=== PATIENT | female | born 1995 | race Caucasian/White ===

== ENCOUNTER 2018-07-14 18:21 | Emergency (ER) | payer SELFPAY ==
--- NOTE | 2018-07-14 20:16 | UC ---
Complaint Female HPI - HPI Summary HPI Summary: 22-year-old female presents with onset of right lower quadrant pain approximately 11:00 this morning. Describes pain as constant and sharp that waxes and wanes with intensity. States pain has been increasingly worsened throughout the day. Associated with some mild nausea. Denies fever, chills, chest pain, shortness of breath, vomiting, diarrhea, dysuria, frequency, urgency , hematuria, vaginal discharge, or abnormal bleeding. Last menstrual period was 2 weeks ago. - History Of Current Complaint Chief Complaint: UCGI Stated Complaint: ABDOMINAL PAIN Time Seen by Provider: 07/14/18 20:04 Hx Obtained From: Patient Hx Last Menstrual Period: 06/21/18 Pain Intensity: 7 - Allergies/Home Medications Allergies/Adverse Reactions: Allergies Allergy/AdvReac Type Severity Reaction Status Date / Time sulfamethoxazole Allergy See Comment Verified 07/14/18 18:48 [From Bactrim] trimethoprim [From Bactrim] Allergy See Comment Verified 07/14/18 18:48 Home Medications: Home Medications clonazePAM TAB(*) [Klonopin TAB(*)] 0.5 mg PO Q6H PRN 07/14/18 [History Confirmed 07/14/18] PMH/Surg Hx/FS Hx/Imm Hx Cardiovascular History: Hypertension Neurological History: Seizures Other History Of: Negative For: HIV, Hepatitis B, Hepatitis C, Anticoagulant Therapy - Surgical History Surgical History: None - Family History Known Family History: Positive: Non-Contributory - Social History Occupation: Unemployed Lives: With Family Alcohol Use: None Substance Use Type: None Smoking Status (MU): Never Smoked Tobacco Review of Systems All Other Systems Reviewed And Are Negative: Yes Constitutional: Negative: Fever, Chills Respiratory: Negative: Shortness Of Breath, Cough Cardiovascular: Negative: Palpitations, Chest Pain Gastrointestinal: Positive: Abdominal Pain, Nausea. Negative: Vomiting, Diarrhea Genitourinary: Negative: Dysuria, Hematuria, Frequency, Urgency, Vaginal/Penile Discharge, Abnormal Bleeding Musculoskeletal: Positive: Negative Neurological: Positive: Negative Is Patient Immunocompromised?: No Physical Exam - Summary Physical Exam Summary: GENERAL APPEARANCE: Obese, alert and cooperative young adult female who appears to be uncomfortable holding her right lower abdomen. CARDIAC: Normal S1 and S2. No S3, S4 or murmurs. Rhythm is regular. There is no peripheral edema, cyanosis or pallor. Extremities are warm and well perfused. Capillary refill is less than 2 seconds. LUNGS: Clear to auscultation and percussion without rales, rhonchi, wheezing or diminished breath sounds. ABDOMEN: Soft, nondistended. Tenderness to RLQ with rebound tenderness. No masses or hepatosplenomegally noted but difficult to assess due to body habitus. Positive bowel sounds. MUSKULOSKELETAL: ROM intact to all extremities. No joint erythema or tenderness. Normal muscular development. Normal gait. SKIN: Skin normal color, texture and turgor with no lesions or eruptions. Triage Information Reviewed: Yes Vital Signs: Initial Vital Signs Temp 98.5 F 07/14/18 18:41 Pulse 87 07/14/18 18:41 Resp 20 07/14/18 18:41 BP 158/107 07/14/18 18:41 Pulse Ox 100 07/14/18 18:41 Vital Signs Reviewed: Yes Complaint Female Dx - Course Course Of Treatment: 22-year-old female presents with onset of right lower quadrant pain approximately 11:00 this morning. Describes pain as constant and sharp that waxes and wanes with intensity. States pain has been increasingly worsened throughout the day. Associated with some mild nausea. Denies fever, chills, chest pain, shortness of breath, vomiting, diarrhea, dysuria, frequency , urgency, hematuria, vaginal discharge, or abnormal bleeding. Last menstrual period was 2 weeks ago. Afebrile. She is hypertensive however her vitals are within normal parameters. Exam revealed an obese young adult female who appeared to be uncomfortable holding her right lower quadrant. Bowel sounds are present. Abdomen is soft and nondistended. She was exquisitely tender to the right lower quadrant with some rebound tenderness. Remainder of exam was unremarkable. Due to the significant right lower quadrant recommending that the patient be evaluated in the emergency room. She is agreeable to this and selecting to transport via private vehicle with her father driving her. - Differential Dx/Diagnosis Differential Diagnosis/HQI/PQRI: Appendicitis, Ectopic, Ovarian Cyst, Renal Colic, Urinary Tract Infection Provider Diagnosis: Acute abdominal pain Discharge - Sign-Out/Discharge Documenting (check all that apply): Patient Departure All imaging exams completed and their final reports reviewed: No Studies - Discharge Plan Condition: Stable Disposition: HOME-RECOMMEND TO ED Patient Education Materials: Abdominal Pain (ED) Referrals: Osvaldo Sheffield MD [Primary Care Provider] - Additional Instructions: With your right lower quadrant pain I cannot rule out the possibility of appendicitis. I am recommending that you go to the emergency room for further evaluation. Go directly to the emergency room for the clinic. Do not eat or drink anything until you have been evaluated. - Billing Disposition and Condition Condition: STABLE Disposition: Home-Recommend to ED
[2018-07-14 20:26] VITALS: BP 163/115
== END 2018-07-14 20:26 | disposition home health service (06) ==
LOC: UCEAST 18:21
DX: R10.31 Right lower quadrant pain (principal); I10 Essential (primary) hypertension; Z88.2 Allergy status to sulfonamides
CPT/HCPCS: 81003; 84702; 87086; 99212; G0463

== ENCOUNTER 2018-07-14 20:39 | Emergency (ER) | payer SELFPAY ==
[2018-07-14] MEDS ORDERED: Morphine VIAL* 10 MG/ML 1 ML VIAL IV ONE (22:12)
[2018-07-14] MEDS ORDERED: NS 0.9% 1000 ML* 1,000 ML IV ONE (22:12)
[2018-07-14] MEDS ORDERED: Ondansetron INJ* 2 MG/ML VIAL IV ONE (22:12)
[2018-07-14 22:18] LABS: Hematocrit 39 % (35-47); Hemoglobin 12.4 g/dl (12.0-16.0); Mean Corpuscular HGB Conc 32 g/dl (31-36); Mean Corpuscular Hemoglobin 24 pg (27-31); Mean Corpuscular Volume 74 fL (80-97); Mean Platelet Volume 7.7 fL (7.4-10.4); Platelet Count 343 10^3/ul (150-450); Red Blood Count 5.21 10^6/ul (4.00-5.40); Red Cell Distribution Width 15 % (10.5-15); White Blood Count 12.4 10^3/ul (3.5-10.8)
[2018-07-14] MEDS ORDERED: Morphine VIAL* 4 MG/ML VIAL (1 ml vial) ONE (22:21)
[2018-07-14 22:31] LABS: ALT 12 U/L (7-52); AST 11 U/L (13-39); Albumin 4.2 g/dL (3.2-5.2); Albumin/Globulin Ratio 1.1 (1-3); Alkaline Phosphatase 115 U/L (34-104); Anion Gap 6 mmol/L (2-11); BUN/Creatinine Ratio 15.6 (8-20); Blood Urea Nitrogen 10 mg/dL (6-24); CO2 Carbon Dioxide 29 mmol/L (22-32); Calcium 9.7 mg/dL (8.6-10.3); Chloride 105 mmol/L (101-111); EGFR Non-African American 118.3 (>60); Globulin 3.7 g/dL (2-4); Glucose 117 mg/dL (70-100); Potassium 4.2 mmol/L (3.5-5.0); Sodium 140 mmol/L (135-145); Total Protein 7.9 g/dL (6.4-8.9)
[2018-07-14] MEDS ORDERED: Iohexol 300* (CONTRAST) 10 ML SDV IV ONE (22:35)
[2018-07-14 22:38] LABS: HCG Pregnancy < 0.60 mIU/mL
[2018-07-14 22:56] LABS: Microcytosis 1+
[2018-07-14 22:57] LABS: ABS Basophils 0.1 10^3/ul (0-0.2); ABS Eosinophils 0.1 10^3/ul (0-0.6); ABS Lymphocytes 2.7 10^3/ul (1.0-4.8); ABS Neutrophils 8.4 10^3/ul (1.5-7.7); ABS Nucleated RBC 0 10^3/ul; Eosinophil % 1.1 %; Lymphocyte % 21.5 %; Nucleated Red Blood Cells % 0.1
[2018-07-14 23:57] LABS: Urine Appearance Cloudy; Urine Bacteria Absent (Absent); Urine Bilirubin Negative (Negative); Urine Blood Negative (Negative); Urine Color Yellow; Urine Glucose Negative (Negative); Urine Ketones Negative (Negative); Urine Nitrite Negative (Negative); Urine Protein Negative (Negative); Urine Red Blood Cell Trace(0-2/hpf) (Absent); Urine Specific Gravity 1.046 (1.010-1.030); Urine Urobilinogen Negative (Negative); Urine White Blood Cell Trace(0-5/hpf) (Absent)
[2018-07-15] MEDS ORDERED: Morphine VIAL* 10 MG/ML 1 ML VIAL IV ONE ×3 (01:07→01:11)
[2018-07-15] MEDS ORDERED: Morphine VIAL* 4 MG/ML VIAL (1 ml vial) ONE (01:56)
--- NOTE | 2018-07-15 03:12 | ED ---
Abdominal Pain/Female - HPI Summary HPI Summary: Patient complains of sudden onset right lower quadrant pain starting this morning. Pain is stabbing, constant, progressive, worse with movement. Patient states eating and drinking normally, denies fever, cough, sore throat, CP, SOB, N/V/D, change in urine, vaginal symptoms. Medical history is epilepsy , HTN, anxiety. Abdominal surgical history is none. Ibuprofen 400 mg taken at 5:30 PM. - History of Current Complaint Chief Complaint: EDAbdPain Stated Complaint: ABD PAIN Time Seen by Provider: 07/14/18 22:07 Hx Obtained From: Patient Hx Last Menstrual Period: 06/21/18 Onset/Duration: Sudden Onset Timing: Constant Severity Initially: Moderate Severity Currently: Severe Pain Intensity: 8 Pain Scale Used: 0-10 Numeric Location: Discrete At: RLQ Radiates: No Character: Sharp Aggravating Factor(s): Movement Alleviating Factor(s): Nothing Allergies/Adverse Reactions: Allergies Allergy/AdvReac Type Severity Reaction Status Date / Time sulfamethoxazole Allergy See Comment Verified 07/14/18 20:44 [From Bactrim] trimethoprim [From Bactrim] Allergy See Comment Verified 07/14/18 20:44 PMH/Surg Hx/FS Hx/Imm Hx Endocrine/Hematology History: Denies: Hx Anticoagulant Therapy, Hx Diabetes, Hx Thyroid Disease Cardiovascular History: Reports: Hx Hypertension Denies: Hx Congestive Heart Failure, Hx Deep Vein Thrombosis, Hx Myocardial Infarction, Hx Pacemaker/ICD Respiratory History: Denies: Hx Asthma, Hx Chronic Obstructive Pulmonary Disease (COPD), Hx Lung Cancer, Hx Pneumonia, Hx Pulmonary Embolism GI History: Denies: Hx Gall Bladder Disease, Hx Gastrointestinal Bleed, Hx Ulcer, Hx Urosepsis History: Denies: Hx Dialysis, Hx Kidney Stones, Hx Renal Disease Sensory History: Denies: Hx Eye Prosthesis Neurological History: Reports: Hx Seizures Denies: Hx Dementia, Hx Migraine, Hx Transient Ischemic Attacks (TIA) Psychiatric History: Denies: Hx Anxiety, Hx Depression, Hx Schizophrenia, Hx Bipolar Disorder Infectious Disease History: No Infectious Disease History: Denies: Traveled Outside the [place] in Last 30 Days - Family History Known Family History: Positive: None, Non-Contributory - Social History Alcohol Use: None Substance Use Type: Reports: None Smoking Status (MU): Never Smoked Tobacco Review of Systems Constitutional: Negative Eyes: Negative ENT: Negative Cardiovascular: Negative Respiratory: Negative Positive: Abdominal Pain Genitourinary: Negative Musculoskeletal: Negative Skin: Negative Neurological: Negative Psychological: Normal All Other Systems Reviewed And Are Negative: Yes Physical Exam - Summary Physical Exam Summary: Extreme tenderness right lower quadrant, moderate pain in right upper quadrant. Abdominal exam otherwise unremarkable. Triage Information Reviewed: Yes Vital Signs On Initial Exam: Initial Vitals Temp Pulse Resp BP Pulse Ox 98.6 F 91 18 153/84 100 07/14/18 20:42 07/14/18 20:42 07/14/18 20:42 07/14/18 20:42 07/14/18 20:42 Vital Signs Reviewed: Yes Appearance: Positive: Well-Appearing Skin: Positive: Warm Head/Face: Positive: Normal Head/Face Inspection Eyes: Positive: Normal Neck: Positive: Supple Respiratory/Lung Sounds: Positive: Clear to Auscultation Cardiovascular: Positive: Normal Abdomen Description: Positive: Other: Musculoskeletal: Positive: Normal Neurological: Positive: Normal Psychiatric: Positive: Normal AVPU Assessment: Alert - [place] Coma Scale Best Eye Response: 4 - Spontaneous Best Motor Response: 6 - Obeys Commands Best Verbal Response: 5 - Oriented Coma Scale Total: 15 Diagnostics - Vital Signs Vital Signs Temp Pulse Resp BP Pulse Ox 07/15/18 01:57 16 07/14/18 23:42 126/75 07/14/18 23:11 85 141/82 100 07/14/18 23:00 89 100 07/14/18 22:41 92 127/87 100 07/14/18 22:35 16 07/14/18 22:09 91 100 07/14/18 20:42 98.6 F 91 18 153/84 100 - Laboratory Lab Results: Lab Results 07/14/18 07/14/18 07/14/18 Range/Units 22:03 22:03 23:47 WBC 12.4 H (3.5-10.8) 10^3/ul RBC 5.21 (4.00-5.40) 10^6/ul Hgb 12.4 (12.0-16.0) g/dl Hct 39 (35-47) % MCV 74 L (80-97) fL MCH 24 L (27-31) pg MCHC 32 (31-36) g/dl RDW 15 (10.5-15) % Plt Count 343 (150-450) 10^3/ul MPV 7.7 (7.4-10.4) fL Neut % (Auto) 68.1 % Lymph % (Auto) 21.5 % [place] % (Auto) 8.4 % Eos % (Auto) 1.1 % Baso % (Auto) 0.9 % Absolute Neuts (auto) 8.4 H (1.5-7.7) 10^3/ul Absolute Lymphs (auto) 2.7 (1.0-4.8) 10^3/ul Absolute Monos (auto) 1.0 H (0-0.8) 10^3/ul Absolute Eos (auto) 0.1 (0-0.6) 10^3/ul Absolute Basos (auto) 0.1 (0-0.2) 10^3/ul Absolute Nucleated RBC 0 10^3/ul Nucleated RBC % 0.1 Microcytosis 1+ Sodium 140 (135-145) mmol/L Potassium 4.2 (3.5-5.0) mmol/L Chloride 105 (101-111) mmol/L Carbon Dioxide 29 (22-32) mmol/L Anion Gap 6 (2-11) mmol/L BUN 10 (6-24) mg/dL Creatinine 0.64 (0.51-0.95) mg/dL Est GFR ( Amer) 143.1 (>60) Est GFR (Non-Af Amer) 118.3 (>60) BUN/Creatinine Ratio 15.6 (8-20) Glucose 117 H (70-100) mg/dL Calcium 9.7 (8.6-10.3) mg/dL Total Bilirubin 0.20 (0.2-1.0) mg/dL AST 11 L (13-39) U/L ALT 12 (7-52) U/L Alkaline Phosphatase 115 H (34-104) U/L Total Protein 7.9 (6.4-8.9) g/dL Albumin 4.2 (3.2-5.2) g/dL Globulin 3.7 (2-4) g/dL Albumin/Globulin Ratio 1.1 (1-3) Lipase 16 (11.0-82.0) U/L Beta HCG, Quant < 0.60 mIU/mL Urine Color Yellow Urine Appearance Cloudy Urine pH 6.0 (5-9) Ur Specific [place] 1.046 H (1.010-1.030) Urine Protein Negative (Negative) Urine Ketones Negative (Negative) Urine Blood Negative (Negative) Urine Nitrate Negative (Negative) Urine Bilirubin Negative (Negative) Urine Urobilinogen Negative (Negative) Ur Leukocyte Esterase 1+ A (Negative) Urine WBC (Auto) Trace(0-5/hpf) (Absent) Urine RBC (Auto) Trace(0-2/hpf) (Absent) Ur Squamous Epith Cells Present A (Absent) Urine Bacteria Absent (Absent) Urine Glucose Negative (Negative) Result Diagrams: 07/14/18 22:03 07/14/18 22:03 Lab Statement: Any lab studies that have been ordered have been reviewed, and results considered in the medical decision making process. Abdominal Pain Fem Course/Dx - Course Course Of Treatment: Patient complains of sudden onset right lower quadrant pain starting this morning. Pain is stabbing, constant, progressive, worse with movement. Patient states eating and drinking normally, denies fever, cough , sore throat, CP, SOB, N/V/D, change in urine, vaginal symptoms. Medical history is epilepsy, HTN, anxiety. Abdominal surgical history is none. Ibuprofen 400 mg taken at 5:30 PM. Physical exam:Extreme tenderness right lower quadrant, moderate pain in right upper quadrant. Abdominal exam otherwise unremarkable. Vital Signs within normal limits. WBC 12.4. Labs otherwise unremarkable. Ultrasound gallbladder negative. CT abdomen and pelvis negative. Transvaginal ultrasound negative. Advised patient follow up with [facility]. - Diagnoses Provider Diagnoses: Abdominal pain Discharge - Sign-Out/Discharge Documenting (check all that apply): Patient Departure - Discharge Plan Condition: Stable Disposition: HOME Patient Education Materials: Acute Abdominal Pain (ED) Forms: *Work Release Referrals: Osvaldo Sheffield MD [Primary Care Provider] - Gemini Gabriel MD [Medical Doctor] - Additional Instructions: Take ibuprofen 600 mg every 6 hours for abdominal pain. Do not take for more than 5 days. Follow up with [facility] Dr Gabriel for further evaluation. Return to the ED for any new or worsening symptoms. - Billing Disposition and Condition Condition: STABLE Disposition: Home
[2018-07-15] MEDS ORDERED: Ibuprofen TAB* 600 MG PO ONE (03:19)
[2018-07-15 03:30] VITALS: BP 121/72
== END 2018-07-15 03:46 | disposition home or self-care (01) ==
LOC: ED 20:39
DX: R10.31 Right lower quadrant pain (principal); N83.202 Unspecified ovarian cyst, left side; Z88.2 Allergy status to sulfonamides
CPT/HCPCS: 36415; 74177; 76705; 76830; 80053; 81003; 81015; 83690; 84702; 85025; 96374; 96375; 96376; 99284; A9270-GY; J2270; J2405; Q9967

== ENCOUNTER 2018-07-17 11:20 | Observation (INO) | payer MEDICAID ==
--- NOTE | 2018-07-17 13:25 | ED ---
GI/ HPI - HPI Summary HPI Summary: Patient is a 22 y/o F presenting to ED with complaints of RLQ pain, nausea, diarrhea over the past three days. Provider in room at 1307, father of patient accompanies patient. She states that pain onset three days ago at 1130. Patient went to [facility], then sent to ED. She states that she had two US (GB and transvag) , CT, and bloodwork done. Patient states that she was told that she had an ovarian cyst on the left side but her pain is on the right. Pain worsened today , which prompted today's visit. Patient states that she has been taking Tylenol and ibuprofen for pain, states that the last time she last took any medication for pain was at 0530. In the room, she rates pain 8/10 and describes it as sharp and stabbing. She denies radiation of pain. Patient notes she is still nauseous but has not vomited. Patient reports multiple episodes of watery diarrhea without blood over the past few days. She denies fever. First day of last period was 06/29 or 06/30, states that it lasted three days. She denies previous complications with periods, no troubles with ovarian cysts previously. Patient has never been . She denies vaginal bleeding, dysuria. No PSHx. PMHx of epilepsy, anxiety, HTN. Patient is on lamictal, klonopin, losartan. FMHx of ovarian cysts in mother. On triage, pain is rated 8/10, nothing is noted to aggravate/alleviate Sx. Home medications and allergies are reviewed. Allergies Allergy/AdvReac Type Severity Reaction Status Date / Time sulfamethoxazole Allergy See Comment Verified 07/17/18 11:48 [From Bactrim] trimethoprim [From Bactrim] Allergy See Comment Verified 07/17/18 11:48 Home Medications Lamictal Klonopin Losartan - History of Current Complaint Chief Complaint: EDAbdPain Time Seen by Provider: 07/17/18 13:07 Stated Complaint: RIGHT SIDE ABD PAIN Hx Obtained From: Patient, [place] [facility] [place]14-09[place]28 days ago Hx Last Menstrual Period: 06/29/18 Onset/Duration: Started Days Ago - three days ago, Still Present, Worse Since - today Timing: Constant, Lasting Days - three days ago Severity: Severe - 8/10 Current Severity: Severe - 8/10 Number of Pads per Day: 0 Pain Intensity: 8 Location of Pain: RLQ Pain Characteristics: Sharp, Other: - stabbing Associated Signs and Symptoms: Positive: Nausea, Diarrhea, Abdominal Pain. Negative: Vomiting, Fever, Dysuria Additional Signs & Symptoms: Positive: First Day of Last Menstral Period - 06/29. Negative: Vaginal Bleeding Aggravating Factor(s): Nothing Alleviating Factor(s): Nothing - Allergy/Home Medications Allergies/Adverse Reactions: Allergies Allergy/AdvReac Type Severity Reaction Status Date / Time sulfamethoxazole Allergy See Comment Verified 07/17/18 11:48 [From Bactrim] trimethoprim [From Bactrim] Allergy See Comment Verified 07/17/18 11:48 Home Medications: Home Medications Ethosuximide CAP* [Zarontin CAP*] 1,250 mg PO BEDTIME 07/17/18 [History Confirmed 07/17/18] PMH/Surg Hx/FS Hx/Imm Hx Previously Healthy: No Endocrine/Hematology History: Denies: Hx Anticoagulant Therapy, Hx Diabetes, Hx Thyroid Disease Cardiovascular History: Reports: Hx Hypertension Denies: Hx Congestive Heart Failure, Hx Deep Vein Thrombosis, Hx Myocardial Infarction, Hx Pacemaker/ICD Respiratory History: Denies: Hx Asthma, Hx Chronic Obstructive Pulmonary Disease (COPD), Hx Lung Cancer, Hx Pneumonia, Hx Pulmonary Embolism GI History: Denies: Hx Gall Bladder Disease, Hx Gastrointestinal Bleed, Hx Ulcer, Hx Urosepsis History: Denies: Hx Dialysis, Hx Kidney Stones, Hx Renal Disease Sensory History: Denies: Hx Eye Prosthesis Opthamlomology History: Denies: Hx Eye Prosthesis Neurological History: Reports: Hx Seizures Denies: Hx Dementia, Hx Migraine, Hx Transient Ischemic Attacks (TIA) Psychiatric History: Reports: Hx Anxiety Denies: Hx Depression, Hx Schizophrenia, Hx Bipolar Disorder - Surgical History Surgery Procedure, Year, and Place: 07/17/2018 - no past surgeries reported Infectious Disease History: No Infectious Disease History: Denies: Traveled Outside the [place] in Last 30 Days - Family History Known Family History: Positive: Other - FMHx of mother with ovarian cysts - Social History Occupation: Employed Full-time Lives: With Family Alcohol Use: None Substance Use Type: Reports: None Smoking Status (MU): Never Smoked Tobacco Review of Systems Negative: Fever Cardiovascular: Negative Respiratory: Negative Positive: Abdominal Pain, Diarrhea, Nausea. Negative: Vomiting Positive: other - NEGATIVE - VAGINAL BLEEDING . Negative: dysuria Musculoskeletal: Negative Skin: Negative Neurological: Negative Psychological: Normal All Other Systems Reviewed And Are Negative: Yes Physical Exam - Summary Physical Exam Summary: Appearance: Well-appearing, moderate to severe pain distress, morbidly obese Skin: Warm, color reflects adequate perfusion, dry Head: Normal Head/Face inspection, atraumatic Eyes: Conjunctiva clear ENT: Normal inspection Neck: Supple, no nodes, no JVD Respiratory: Lungs clear, normal breath sounds, no respiratory distress Cardio: RRR, No murmur, pulses normal, brisk capillary refill Abdomen: Soft, RLQ tenderness, + guarding, + rebound Bowel sounds: Present Pelvic Exam: Peyton perez. Exam limited by patient's morbid obesity. Moderate amount of yellow thick discharge, there is a small amount of blood, cervix is tender. Cervix is friable. Cultures taken. Uterus is normal size. Left adenexal area is nontender. When touching right adenexal area patient cries out in pain; right adenexal area is tender. Musculoskeletal: Strength Intact/ROM intact, no calf tenderness, no edema. Psychological: Normal Neuro: Alert, muscle tone normal, no focal deficit Triage Information Reviewed: Yes Vital Signs On Initial Exam: Initial Vitals Temp Pulse Resp BP Pulse Ox 98.3 F 88 16 189/112 100 07/17/18 11:46 07/17/18 11:46 07/17/18 11:46 07/17/18 11:46 07/17/18 11:46 Vital Signs Reviewed: Yes Diagnostics - Vital Signs Vital Signs Temp Pulse Resp BP Pulse Ox 07/17/18 11:46 98.3 F 88 16 189/112 100 - Laboratory Result Diagrams: 07/17/18 13:30 07/17/18 13:30 Lab Statement: Any lab studies that have been ordered have been reviewed, and results considered in the medical decision making process. - CT ct abd/pel CT Interpretation Completed By: Radiologist Summary of CT Findings: CT ABD/PEL IMPRESSION: 1. There is no oral contrast or gas in the lumen the appendix which can and some then be. seen in the setting of appendicitis. However the appendix is not pathologically dilated. measuring 7 mm in diameter and there is no definite periappendiceal inflammatory change. CT findings possibly could represent very early appendicitis. 2. There are air- fluid levels seen throughout much of the colon which can be seen in the. setting of diarrhea illness. THIS REPORT WAS REVIEWED BY ED PHYSICIAN. - Ultrasound No standard instances Ultrasound Interpretation Completed By: Radiologist Summary of Ultrasound Findings: TRANSVAGINAL US IMPRESSION: 1. As previously seen, there is a simple appearing cyst of the left ovary. measuring a maximum of 2.1 cm which previously measured a maximum of 2.5 cm. 2. No evidence for ovarian torsion. THIS REPORT WAS REVIEWED BY ED PHYSICIAN. Re-Evaluation - Re-Evaluation First Eval Re-Evaluation Time: 17:01 Change: Unchanged Comment: Pelvic Exam was performed with peyton Buckley present. Second Eval Re-Evaluation Time: 18:57 Comment: 1857 - Dr. Suarez was in the emergency department and evaluated the patient with Dr. Lombardi. Dr. Suarez admits the patient to OR for exploratory surgery. Patient is agreeable with this. GIGU Course/Dx - Course Course Of Treatment: Patient is a 22 y/o F presenting to ED with complaints of RLQ pain, nausea, diarrhea over the past three days. She states that pain onset three days ago at 1130. Patient went to [facility], then sent to ED. She states that she has two US, CT, and bloodwork done. Patient states that she was told that she had an ovarian cyst on the left side. Pain worsened today, which prompted today's visit. Patient states that she has been taking Tylenol and ibuprofen for pain, states that the last time she last took any medication for pain was at 0530. In the room, she rates pain 8/10 and describes it as sharp and stabbing. She denies radiation of pain. Patient notes she is still nauseous but has not vomited. Patient reports multiple episodes of watery diarrhea without blood over the past few days. She denies fever. First day of last period was or 06/30, states that it lasted three days. She denies previous complications with periods, no troubles with ovarian cysts previously. Patient has never been . She denies vaginal bleeding, dysuria. No PSHx. PMHx of epilepsy, anixety, HTN, patient is on lamictal, klonopin, losartan. FMHx of ovarian cysts in mother. On physical exam, patient is morbidly obese and in moderate to severe pain distress. RLQ tenderness is noted, + guarding, + rebound. Pelvic Exam: Exam limited by patient's morbid obesity. Moderate amount of yellow thick discharge, there is a small amount of blood, cervix is tender. Cervix is friable. Cultures taken. Uterus is normal size. Left adenexa is nontender. When touching right adenexa patient cries out in pain; right adenexa is tender. TRANSVAGINAL US IMPRESSION: 1. As previously seen, there is a simple appearing cyst of the left ovary. measuring a maximum of 2.1 cm which previously measured a maximum of 2.5 cm. 2. No evidence for ovarian torsion. CT ABD/PEL IMPRESSION: 1. There is no oral contrast or gas in the lumen the appendix which can and some then be. seen in the setting of appendicitis. However the appendix is not pathologically dilated. measuring 7 mm in diameter and there is no definite periappendiceal inflammatory change. CT findings possibly could represent very early appendicitis. 2. There are air- fluid levels seen throughout much of the colon which can be seen in the. setting of diarrhea illness. Labs showed WBC 9.9, RBC 5.49, MCV 74, MCH 24, alk phos 108, ALT 18, AST 13, CRP 20.63, lipase 16, amylase 34, beta HCG < 0.6. UA showed trace leukocyte esterase, trace RBC, squamous epith cells present, no bacteria, negative glucose. During ED course, patient was given Zofran 4 mg IV ED ONCE ONE, Ativan 1 mg PO ED ONCE ONE, and Toradol 30 mg IV PUSH ED ONCE ONE. 1856 - Dr. Suarez was in the emergency department and evaluated the patient with Dr. Lombardi. Dr. Suarez admits the patient to OR for diagnostic laparoscopy and possible appendectomy. Patient is agreeable with this. Dx of RLQ abd pain, vaginal discharge, left ovarian cyst, pelvic pain. - Diagnoses Differential Diagnoses - Female: Appendicitis, Candidiasis, Cervicitis, Cystitis , Diarrhea, Ovarian Cyst, Ovarian Torsion, Pancreatitis, Pelvic Inflammatory Disease, STD, Urinary Tract Infection, Vaginitis Provider Diagnoses: RLQ abdominal pain, Vaginal discharge, Left ovarian cyst, Pelvic pain - Physician Notifications Discussed Care Of Patient With: Aleksandr Suarez Time Discussed With Above Provider: 18:57 Instructed by Provider To: Other - 1856 - Dr. Suarez was in the emergency department and evaluated the patient with Dr. Lombardi. Dr. Suarez admits the patient to OR for exploratory laparoscopy and possible appendectomy. Discharge - Sign-Out/Discharge Documenting (check all that apply): Patient Departure - admit - Discharge Plan Condition: Stable Disposition: ADMITTED TO [facility] - Billing Disposition and Condition Condition: STABLE Disposition: Admitted to [facility] - Attestation Statements Document Initiated by Walter: Yes Documenting Scribe: CIARRA LIMA Provider For Whom Walter is Documenting (Include Credential): FABIAN LOMBARDI MD Scribe Attestation: CIARRA Slade , scribed for FABIAN LOMBARDI MD on 07/25/18 at 1920. Scribe Documentation Reviewed: Yes Provider Attestation: The documentation as recorded by the scribeCIARRA accurately reflects the service I personally performed and the decisions made by me, FABIAN LOMBARDI MD Status of Scribe Document: Viewed
[2018-07-17] MEDS ORDERED: Ketorolac INJ* 30 MG/ML 1 ML VIAL IV PUSH ONE (13:34)
[2018-07-17] MEDS ORDERED: Ondansetron INJ* 2 MG/ML VIAL IV ONE (13:35)
[2018-07-17] MEDS ORDERED: Iohexol 300* (CONTRAST) 10 ML SDV IV ONE (13:54)
[2018-07-17 14:03] LABS: Urine Appearance Clear; Urine Bacteria Absent (Absent); Urine Bilirubin Negative (Negative); Urine Blood Negative (Negative); Urine Color Straw; Urine Glucose Negative (Negative); Urine Ketones Negative (Negative); Urine Nitrite Negative (Negative); Urine Protein Negative (Negative); Urine Red Blood Cell Trace(0-2/hpf) (Absent); Urine Specific Gravity 1.006 (1.010-1.030); Urine Squamous Epithelial Cell Present (Absent); Urine Urobilinogen Negative (Negative); Urine White Blood Cell Absent (Absent)
[2018-07-17 14:31] LABS: ABS Basophils 0.1 10^3/ul (0-0.2); ABS Eosinophils 0.1 10^3/ul (0-0.6); ABS Lymphocytes 2.4 10^3/ul (1.0-4.8); ABS Monocytes 0.7 10^3/ul (0-0.8); ABS Neutrophils 6.5 10^3/ul (1.5-7.7); ABS Nucleated RBC 0 10^3/ul; Eosinophil % 1.2 %; Hematocrit 40 % (35-47); Hemoglobin 13.1 g/dl (12.0-16.0); Lymphocyte % 24.7 %; Mean Corpuscular HGB Conc 32 g/dl (31-36); Mean Corpuscular Hemoglobin 24 pg (27-31); Mean Corpuscular Volume 74 fL (80-97); Mean Platelet Volume 7.7 fL (7.4-10.4); Nucleated Red Blood Cells % 0; Platelet Count 351 10^3/ul (150-450); Red Blood Count 5.49 10^6/ul (4.00-5.40); Red Cell Distribution Width 15 % (10.5-15); White Blood Count 9.9 10^3/ul (3.5-10.8)
[2018-07-17 15:20] LABS: HCG Pregnancy < 0.60 mIU/mL
[2018-07-17 15:33] LABS: ALT 18 U/L (7-52); AST 13 U/L (13-39); Albumin 4.6 g/dL (3.2-5.2); Albumin/Globulin Ratio 1.6 (1-3); Alkaline Phosphatase 108 U/L (34-104); Anion Gap 10 mmol/L (2-11); BUN/Creatinine Ratio 17.4 (8-20); Blood Urea Nitrogen 12 mg/dL (6-24); C Reactive Protein 20.63 mg/L (<8.01); CO2 Carbon Dioxide 23 mmol/L (22-32); Calcium 9.7 mg/dL (8.6-10.3); Chloride 105 mmol/L (101-111); EGFR African American 131.2 (>60); EGFR Non-African American 108.5 (>60); Globulin 2.9 g/dL (2-4); Glucose 81 mg/dL (70-100); Magnesium 1.9 mg/dL (1.9-2.7); Potassium 4.1 mmol/L (3.5-5.0); Sodium 138 mmol/L (135-145); Total Protein 7.5 g/dL (6.4-8.9)
[2018-07-17] MEDS ORDERED: LORazepam TAB(*) 1 MG PO ONE (17:23)
[2018-07-17] MEDS ORDERED: fentaNYL* 50 MCG/ML 5 ML VIAL (250 MCG VIAL) ONE (19:14)
[2018-07-17] MEDS ORDERED: Propofol* 10 MG/ML 20 ML BTL ONE (19:14)
[2018-07-17] MEDS ORDERED: Lidocaine 2% PF * 5 ML VIAL ONE (19:14)
[2018-07-17] MEDS ORDERED: Succinylcholine* 20 MG/ML 10 ML VIAL ONE (19:14)
[2018-07-17] MEDS ORDERED: Bupivacaine 0.25% W/EPI* 10 ML SDV ONE (19:19)
[2018-07-17] MEDS ORDERED: HYDROcodone/ACETAMIN 5-325 MG* 1 TAB PO PRN (19:25)
[2018-07-17] MEDS ORDERED: Naloxone* 0.4 MG/ML 1 ML VIAL IV PRN (19:25)
[2018-07-17] MEDS ORDERED: Sodium Citrate/Citric Acid* 15 ML UDC PO ONE (19:25)
[2018-07-17] MEDS ORDERED: DiMENhydriNATE IV* 50 MG/ML VIAL IV PUSH PRN (19:25)
[2018-07-17] MEDS ORDERED: oxyCODONE/Acetamin 5/325 MG* TAB PO PRN (19:25)
[2018-07-17] MEDS ORDERED: Sodium Citrate/Citric Acid* 15 ML UDC ONE (19:29)
[2018-07-17] MEDS ORDERED: ceFAZolin 2 GM PREMIX in ORs 2 GM/50 ML BAG IVPB ONE (19:30)
[2018-07-17] MEDS ORDERED: ceFAZolin 1 GM ADVAN(*) 1 GM ADDV.VIAL IVPB ONE (19:30)
[2018-07-17] MEDS ORDERED: EPHEDrine (Pressors)* 50 MG/ML VIAL ONE (20:38)
[2018-07-17] MEDS ORDERED: Rocuronium* 10 MG/ML VIAL ONE (20:43)
[2018-07-17] MEDS ORDERED: fentaNYL* 50 MCG/ML 2 ML VIAL (100 MCG VIAL) ONE ×4 (21:19→23:58)
[2018-07-17] MEDS ORDERED: Ondansetron INJ* 2 MG/ML VIAL ONE ×2 (21:22→22:27)
[2018-07-17] MEDS ORDERED: Glycopyrrolate IV* 0.2 MG/ML 1 ML VIAL ONE (21:23)
--- NOTE | 2018-07-17 21:41 | BRIEFOPN ---
Brief Operative Note - Surgery Procedures: Procedures Pre-OP Diagnoses: abdo pain Post-op Diagnosis: same Procedure: Diagnostic laparoscopy, appendectomy Surgeon: Erick Asst: none Anethesia: GETA EBL: minimal IVF: crystalloid Specimen: appendix Drains: none Findings injected uterus, scant free fluid, L ovarian cyst Complications: None
[2018-07-17] MEDS ORDERED: Acetaminophen TAB* 325 MG PO PRN (21:45)
[2018-07-17] MEDS ORDERED: Ondansetron INJ* 2 MG/ML VIAL IV PRN (21:45)
[2018-07-17] MEDS ORDERED: Ibuprofen TAB* 600 MG PO PRN (21:45)
[2018-07-17] MEDS ORDERED: HYDROmorphone INJ* 2 MG/ML CARPUJECT SYRINGE IV PRN (21:45)
[2018-07-17] MEDS ORDERED: clonazePAM TAB(*) 0.5 MG PO PRN (21:48)
[2018-07-17] MEDS: fentaNYL* 50 MCG/ML 2 ML VIAL (100 MCG VIAL) IV PRN ×5 (21:52→23:59)
[2018-07-17] MEDS ORDERED: DiMENhydriNATE IV* 50 MG/ML VIAL ONE (21:59)
[2018-07-17] MEDS ORDERED: Heparin VIAL(*) 5000 UNITS/ML VIAL (FIVE THOUSAND) SUBCUT SCH (22:00)
[2018-07-17] MEDS ORDERED: Lactated Ringers 1000 ML Bag* 1,000 ML IV SCH (22:00)
[2018-07-17] MEDS ORDERED: hydrALAZINE IV* 20 MG/ML VIAL ONE (22:06)
--- NOTE | 2018-07-17 22:08 | HP ---
CC: Primary Care Doctor; [facility]. HISTORY AND PHYSICAL: DATE OF ADMISSION: 07/17/18 HISTORY OF PRESENT ILLNESS: I was contacted by the emergency room to evaluate Ms. Gupta, a 22-year -old female who presented to [facility] Emergency Room the second time in 3 days with comp laints of right-sided abdominal pain. The patient describes onset of pain Thursday. She presented to a convenient care, was sent to the E R where she underwent a gallbladder ultrasound and a CAT scan of the abdomen and pelvis as well as a transvaginal ultrasound. These things were all performed. The patient was discharged to home when t hey were all negative. She did undergo labs at that time and showed an elevated white blood cell cou nt of 12.4 without left shift. The patient did not show any improvement, went home, and she re-presented today. She stated that she had an onset of nausea since her first visit, but no vomiting. She is constipated. Denies diarrhea. Denies any fevers, but has still chills. She has had waxing and waning appetite, currently she is hu ngry. Pain is relieved when lying still, worse with moving. PAST MEDICAL HISTORY: Hypertension, epilepsy, and anxiety. PAST SURGICAL HISTORY: None. MEDICATIONS: 1. Klonopin. 2. Losartan. 3. Hyzaar. 4. Lamictal. 5. Zarontin. ALLERGIES: She is allergic to BACTRIM. FAMILY HISTORY: Negative for ulcerative colitis or Crohn's disease. Patient's mother did have appen dicitis in her 20s. Mom and dad are alive and well. SOCIAL HISTORY: She is a nonsmoker. Denies alcohol use. She lives with her family. 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 REVIEW OF SYSTEMS: The patient does have seizures, takes multiple medications for this and her last seizure was approximately 3 months ago. Denies any respiratory disease. She does exercise regularly . She does have hypertension, obesity, but no diabetes. She denies any dysuria, last menstrual roseanne od was 2 weeks ago. She denies any vaginal discharge. No dysuria. Constipation as described. Fair exercise tolerance. No bleeding or clotting disorders. No family history of complication with anes thesia. PHYSICAL EXAMINATION GENERAL: She is alert and oriented x3. No apparent distress. VITAL SIGNS: Temperature 99.7, heart rate 90, blood pressure 162/100. HEAD, EYES, EARS, NOSE, AND THROAT: Normocephalic, atraumatic. Sclerae anicteric. Mucous membranes are moist. LUNGS: Clear to auscultation bilaterally. ABDOMEN: Soft, obese, tender at the right lower quadrant McBurney's point without rebound. No CVA t enderness. Negative Rovsing's sign, positive psoas sign. VAGINAL AND RECTAL: Exam not performed, but patient did undergo a vaginal exam by the emergency room physician, who discussed this with me and stated that she did have some vaginal discharge and some t enderness, but not significant. The patient did undergo additional studies with regard to this. EXTREMITIES: Within normal limits. LABORATORY DATA/DIAGNOSTIC STUDIES: Labs reviewed. CT scan reviewed both one from 3 days ago and today. Report on the ultrasound transvaginally reviewe d too and is consistent with left ovarian cyst that appeared simple. Patient's beta hCG is negative. IMPRESSION: Abdominal pain, rule out appendicitis. The patient has a strong family history of appen dicitis and 3 days of pain that has not resolved despite IV fluids and time. I believe this workup i s not entirely negative with the notable fluids of appendix that does not fill the contrast despite t he filling of the cecum. I feel like patient most likely is suffering with acute appendicitis and I would like to take her to the operating room for diagnostic laparoscopy, possible appendectomy. I ou tlined the details of the procedure, going over the risks, benefits, and alternatives both to her and her father and they agreed. We spoke about the possible alternatives or additional watchful waiting . They wished to proceed in this fashion of continued workup with diagnostic laparoscopy. I discusse d the 3 incisions that may require an open incision or additional procedures. We spoke about possibl e complications, which include but are not limited to bleeding, infection, abscess formation, injury to adjacent organs, need for additional procedures, and prolonged hospitalization. The patient's que stions were answered and consent was signed. She will receive a dose of antibiotics leading up to th e operating room and she will in all likelihood spend the night. We will have to treat her hypertensi on. [id number]/[facility] #: [id number]
[2018-07-17] MEDS ORDERED: HYDROcodone/ACETAMIN 5-325 MG* 1 TAB ONE (22:17)
[2018-07-17] MEDS ORDERED: Morphine VIAL* 4 MG/ML VIAL (1 ml vial) ONE ×3 (22:43→23:52)
[2018-07-17] MEDS ORDERED: Metoprolol Tartrate IV* 1 MG/ML 5 ML VIAL ONE (22:43)
[2018-07-17] MEDS ORDERED: Labetalol IV* 5 MG/ML 20 ML VIAL IV PUSH PRN (23:19)
--- NOTE | 2018-07-18 01:45 | OP ---
CC: Dr. Osvaldo Sheffield; [facility] OPERATIVE REPORT: DATE OF OPERATION: 07/17/18 DATE OF : 89 SURGEON: Aleksandr Suarez MD GRANITE WORKER: None. PRE-OP DIAGNOSIS: Abdominal pain. POST-OP DIAGNOSIS: Abdominal pain. OPERATIVE PROCEDURE: Diagnostic laparoscopy and appendectomy. ESTIMATED BLOOD LOSS: Minimal. FLUIDS: Minimal crystalloid fluid given. SPECIMEN: Appendix. DRAINS: None. COUNTS: Lap pad count and instrument count correct at the end of the procedure. CONDITION: The patient transferred to the PACU, stable. INDICATIONS: Ms. Gupta is a 22-year-old female who presented to the emergency room second time in 3 days with continuous abdominal pain centered in the right lower quadrant. Workup has included a CA T scan, ultrasounds as well as labs; these were all reviewed and I discussed the case after examining her and recommended diagnostic laparoscopy. DESCRIPTION OF PROCEDURE: The patient was identified in the preoperative area and consent was signed . The patient was marked, brought to the operating room, placed on the operating table in the supine position. Preoperative antibiotics were given. Sequential devices were placed on bilateral lower e xtremities. General anesthesia was induced. The patient's abdomen was prepped and draped in a stand jeramie surgical fashion and a time-out was performed. Folds of the umbilicus were elevated anteriorly and a Veress needle inserted into the abdominal cavit y, which was then allowed to insufflate to a pressure of 15 mmHg. The patient tolerated the insuffla tion well. A right upper quadrant incision was made and a 12-mm Optiview was then inserted at the si te. Laparoscope was inserted and there was no evidence of injury from the trocar insertion or from t he Veress needle, which was then removed. Additional trocars were then placed in the following positions: A 5-mm in the periumbilical area and a 5-mm in the lower abdomen, midline. Review of the abdomen showed normal-appearing bowel. There was no fluid. Large omentum. Due to the patient's body habitus, it was difficult placing her in a Trendelenburg position that would allow us a good opportunity to move the bowel well and we had to continually push the small bowel up and then the right upper quadrant along with omentum in order to see the cecum. Cecum was identified, we can see appendix that was long, but without any significant signs of inflammation. The pelvis was review ed and showed scant amount of free fluid, this was red colored. The uterus was injected throughout, but without lesion. The right ovary appeared normal and left ovary showed a cyst that was simple-nany earing. Sigmoid colon was within normal limits. We also reviewed the gallbladder, which was distend ed, but without evidence of inflammation and the liver was normal as well. There were adhesions to the anterior abdominal wall from the cecum. These were sharply lysed and the n the cecum was rotated medially and the appendix listed and a window was made at the base of the nany endix. A 45-mm arrieta VALERIA stapler device was fired through this and a mesoappendix was taken with a 45- mm brambila load. This was placed in endoscopic retrieval bag and brought up through the right upper beronica drant port site. It should be noted that we did place another 5-mm left lower quadrant port to help with our visualization. Next, the small bowel was run starting at the terminal ileum and run for approximately 100 cm. There were no evidence of lesions. At this point, the trocars were removed under direct vision, and the a bdomen was allowed to collapse and all 4 skin incisions were reapproximated with 4-0 Monocryl subcuti cular sutures followed by Steri-Strips and sterile dressing. [id number]/[facility] #: [id number]
[2018-07-18] MEDS: HYDROmorphone INJ1* 1 MG/ML SYRINGE IV PRN ×2 (02:33→04:32)
[2018-07-18] MEDS: Heparin VIAL(*) 5000 UNITS/ML VIAL (FIVE THOUSAND) SUBCUT SCH ×2 (02:40→10:28)
[2018-07-18] MEDS: HYDROcodone/ACETAMIN 5-325 MG* 1 TAB PO PRN ×2 (04:34→08:27)
[2018-07-18 08:19] VITALS: BP 148/84
[2018-07-18] MEDS ORDERED: Hydrochlorothiazide TAB* 25 MG PO SCH (09:00)
[2018-07-18] MEDS ORDERED: Losartan TAB* 25 MG PO SCH (09:00)
[2018-07-18] MEDS ORDERED: Ethosuximide CAP* 250 MG PO SCH ×2 (09:00→21:00)
[2018-07-18] MEDS ORDERED: lamoTRIgine TAB(*) 100 MG PO SCH (09:00)
--- NOTE | 2018-07-18 11:07 | DS ---
CC: Dr. Osvaldo Sheffield * DISCHARGE SUMMARY: DATE OF ADMISSION: DATE OF DISCHARGE: 07/18/18 HOSPITAL COURSE: Ms. Gupta is a 22-year-old female, who presented to the emergency room last night, a second time in 3 days with complaints of right lower quadrant abdominal pain. Workup was similar to 3 days ago. The patient underwent a CAT scan as well as a transvaginal ultrasound along with labs. On an initial visit, she did have elevated white blood cell count. On followup visit, it was normalized, but mildly elevated CRP. Pain was persisted in the right lower quadrant accompanied with constipation and nausea. I recommended a trip to the operating room for diagnostic laparoscopy and appendectomy. The findings intraoperatively were normal appearing appendix and injected uterus with a simple cyst on the left ovary, normal appearing right ovary. The patient was transferred to the PACU and was admitted in the overnight period due to the late hour. In the overnight period, the patient did well. She had some nausea and this was treated with antinausea medications. She was ambulating and tolerating the diet. PHYSICAL EXAMINATION: On day of discharge, she was examined where she was noted to be afebrile. Vital signs are stable. Head, Ears, Eyes, Nose, and Throat: Normocephalic, atraumatic. Sclerae anicteric. Mucous membranes are moist. Lungs are clear. Abdomen: Soft, obese, incisional tenderness. Dressings are clean, dry, and intact. Rectal exam and vaginal exam not performed. Extremities within normal limits. No calf tenderness. IMPRESSION: Postoperative day 1 laparoscopic appendectomy. PLAN: Discharge home. Etiology of abdominal pain is unclear, but she does not warrant any additional stay in the hospital. I do not want to send her home on antibiotics. I would like to see her in my office on this week. She is aware of this and a discharge instruction sheet has been given to her. [id number]/[facility] #: [id number] MTDD
[2018-07-19 14:45] LABS: Neisseria gonorrhoeae (GC) RNA Negative (Negative)
[2018-07-19 14:55] LABS: Trichomonas vaginalis Result Negative (Negative)
--- NOTE | 2018-07-25 19:06 | PN ---
Progress Note - Progress Note Date of Service: 07/25/18 - 19:05pm. Left message for pt to call my cell [phone], Dr. Shruthi Almeida Note: 19:10 Pt called back. Verified name and . Identified myself as pt's ED provider before surg. She states she remembers me. Pt states she is doing well post op. Still gets "winded and has to sit down". But states her pain is better. I advised pt that review of her chart showed growth of gardnerella from the pelvic cultures taken in the ED, and that I did not see in any of the notes that this result was addressed. I explained to pt that this is not an STD , that it is a common infection known as bacterial vaginosis, or BV, usually treated with the antibiotic Flagyl or metronidazole. I advised pt that if she is still symptomatic with any pelvic discomfort or vaginal discharge that I can send a prescription for flagyl to her pharmacy. Pt states "thank you for letting me know", and declines a prescription at this time. States if she gets any worse, she "will let me know". I advised her that if she got any worse, she should let Dr. Sheffield know, or seek medical attention, that I would not be her ongoing provider. Pt stated she understand and thanked me and said corinebymariaelena. Anoop ALMEIDA MD 07/25/18
== END 2018-07-18 11:17 | disposition home or self-care (01) ==
LOC: ED 11:20 → OR 19:41 → SSU 07-18 00:35
PROVIDERS: ADMIT Surgery; ATTEND Surgery
DX: R10.9 Unspecified abdominal pain (principal); I10 Essential (primary) hypertension; G40.909 Epilepsy, unspecified, not intractable, without status epilepticus; R11.0 Nausea; R19.7 Diarrhea, unspecified; R10.2 Pelvic and perineal pain; N83.202 Unspecified ovarian cyst, left side; Z86.73 Personal history of transient ischemic attack (TIA), and cerebral infarction without residual deficits; Z88.2 Allergy status to sulfonamides
CPT/HCPCS: 36415; 74177; 76830; 80053; 81003; 81015; 82150; 83605; 83690; 83735; 84702; 85025; 86140; 87086; 87480; 87491; 87510; 87591; 87661; 88304; 96374; 96375; 96376; 99284; A9270-GY; C1776; G0378; J0330; J0360; J0690; J1170; J1240; J1644; J1885; J2270; J2405; J2704; J3010; J3490; Q9967

== ENCOUNTER 2019-02-24 12:01 | Emergency (ER) | payer OTHER ==
--- NOTE | 2019-02-24 12:35 | ED ---
Neurological HPI - HPI Summary HPI Summary: 23 year old F brought in by EMS to [facility] accompanied by father complains of headache since witnessed seizure at 11:00 today while working at [employer]. The patient rates the pain 2/10 in severity. Symptoms aggravated by nothing. Symptoms alleviated by nothing. Patient reports neck and upper back pain. Patient thinks she hit the back of her head. Father states he was called at 11: 30 reporting that patient was in the ambulance. Patient has hx seizures for which she takes ethosuximide and lamotrigine daily. Dr. Real is her neurologist. Patient drinks alcohol occasionally but hasn't had any in the last couple days. Patient denies drugs and smoking. - History of Current Complaint Chief Complaint: EDSeizure Stated Complaint: SEIZURE Time Seen by Provider: 02/24/19 12:28 Hx Obtained From: Patient, Family/Ambulatory Service Representative - father Onset/Duration: Started hours ago - 11:00 today, Still Present, Resolved Timing: Constant Current Severity: Mild - 2/10 Pain Intensity: 2 Pain Scale Used: 0-10 Numeric Aggravating: Nothing Alleviating: Nothing - Additional Pertinent History Primary Care Physician: DESTINI - Allergy/Home Medications Allergies/Adverse Reactions: Allergies Allergy/AdvReac Type Severity Reaction Status Date / Time sulfamethoxazole Allergy See Comment Verified 07/17/18 11:48 [From Bactrim] trimethoprim [From Bactrim] Allergy See Comment Verified 07/17/18 11:48 Home Medications: Home Medications Valsartan TAB* [Diovan TAB*] 160 mg PO DAILY 02/24/19 [History Confirmed ] lamoTRIgine TAB(*) [LaMICtal TAB(*)] 200 mg PO BID 02/24/19 [History Confirmed 02/24/19] PMH/Surg Hx/FS Hx/Imm Hx Endocrine/Hematology History: Denies: Hx Anticoagulant Therapy, Hx Diabetes, Hx Thyroid Disease Cardiovascular History: Reports: Hx Hypertension Denies: Hx Congestive Heart Failure, Hx Deep Vein Thrombosis, Hx Myocardial Infarction, Hx Pacemaker/ICD Respiratory History: Denies: Hx Asthma, Hx Chronic Obstructive Pulmonary Disease (COPD), Hx Lung Cancer, Hx Pneumonia, Hx Pulmonary Embolism GI History: Denies: Hx Gall Bladder Disease, Hx Gastrointestinal Bleed, Hx Ulcer, Hx Urosepsis History: Denies: Hx Dialysis, Hx Kidney Stones, Hx Renal Disease Sensory History: Denies: Hx Contacts or Glasses, Hx Eye Prosthesis, Hx Hearing Aid Opthamlomology History: Denies: Hx Contacts or Glasses, Hx Eye Prosthesis Neurological History: Reports: Hx Seizures Denies: Hx Dementia, Hx Migraine, Hx Transient Ischemic Attacks (TIA) Psychiatric History: Reports: Hx Anxiety Denies: Hx Depression, Hx Schizophrenia, Hx Bipolar Disorder - Surgical History Surgery Procedure, Year, and Place: appendectomy Infectious Disease History: No Infectious Disease History: Denies: Traveled Outside the [place] in Last 30 Days - Family History Known Family History: Positive: Hypertension - mother, Diabetes - mother, Other - FMHx of mother with ovarian cysts Family History: mother has asthma, COPD - Social History Alcohol Use: Occasionally Hx Substance Use: No Substance Use Type: Reports: None Hx Tobacco Use: No Smoking Status (MU): Never Smoked Tobacco Review of Systems Positive: Other - neck and upper back pain Neurological: Other - seizure Positive: Headache All Other Systems Reviewed And Are Negative: Yes Physical Exam - Summary Physical Exam Summary: VITAL SIGNS: Reviewed. GENERAL: Patient is an obese female who is lying comfortable in the stretcher. Patient is not in any acute respiratory distress. HEAD AND FACE: No signs of trauma. No ecchymosis, hematomas or skull depressions. No sinus tenderness. EYES: PERRLA, EOMI x 2, No injected conjunctiva, no nystagmus. EARS: Hearing grossly intact. Ear canals and tympanic membranes are within normal limits. MOUTH: Oropharynx within normal limits. NECK: Supple, trachea is midline, no adenopathy, no JVD, no carotid bruit, no c- spine tenderness, neck with full ROM. CHEST: Symmetric, no tenderness at palpation. LUNGS: Clear to auscultation bilaterally. No wheezing or crackles. CVS: Regular rate and rhythm, S1 and S2 present, no murmurs or gallops appreciated. ABDOMEN: Soft, non-tender. No signs of distention. No rebound, no guarding, and no masses palpated. Bowel sounds are normal. EXTREMITIES: FROM in all major joints, no edema, no cyanosis or clubbing. NEURO: Alert and oriented x 3. No acute neurological deficits. Speech is normal and follows commands. SKIN: Dry and warm Triage Information Reviewed: Yes Vital Signs On Initial Exam: Initial Vitals Temp Pulse Resp BP Pulse Ox 98.3 F 68 16 150/88 99 02/24/19 12:14 02/24/19 12:14 02/24/19 12:14 02/24/19 12:14 02/24/19 12:14 Vital Signs Reviewed: Yes Diagnostics - Vital Signs Vital Signs Temp Pulse Resp BP Pulse Ox 02/24/19 12:14 98.3 F 68 16 150/88 99 - Laboratory Result Diagrams: 02/24/19 14:25 02/24/19 14:25 Lab Statement: Any lab studies that have been ordered have been reviewed, and results considered in the medical decision making process. - EKG 1240 Cardiac Rate: Tachycardia - 103 BPM EKG Rhythm: Sinus Tachycardia Summary of EKG Findings: Sinus tachycardia [address] elevations Re-Evaluation - Re-Evaluation First Eval Re-Evaluation Time: 15:56 Comment: dicussed discharge plan. patient is agreeable to discharge Course/Dx - Course Assessment/Plan: 23 year old F brought in by EMS to [facility] accompanied by father complains of headache since witnessed seizure at 11:00 today while working at [employer]. The patient rates the pain 2/10 in severity. Symptoms aggravated by nothing. Symptoms alleviated by nothing. Patient reports neck and upper back pain. Patient thinks she hit the back of her head. Father states he was called at 11:30 reporting that patient was in the ambulance. Patient has hx seizures for which she takes ethosuximide and lamotrigine daily. Dr. Real is her neurologist. Patient drinks alcohol occasionally but hasn't had any in the last couple days. Patient denies drugs and smoking. Blood work without any significant abnormality except for WBCs of 12.7, glucose 102, alkaline phosphatase of 109. Urinalysis is negative for UTI. In the ED course the patient is back to baseline. The patient was observed for a couple hours and the patient didnt have any other symptoms. I discussed case with and Kwaku Gary working with Dr. Godwin saying he recommends for the patient to be discharged home with follow-up with Dr. Real. He requested to get the levels for lamotrigine and ethosuximide. I gave a note to be off from work until cleared by Dr. Real. Discussed the findings and test results with the patient and the patients father and they agree. The patient is hemodynamically stable alert and oriented 3. She was also recommended to return to the emergency department if she develops any of the seizure. She agrees and understands. - Diagnoses Provider Diagnoses: Seizure - Physician Notifications Time Discussed With Above Provider: 15:34 Instructed by Provider To: Other - Spoke with Kwaku Gary who is working with Dr. Godwin, neurology, and who states that he will discuss case with Dr. Godwin Discharge - Sign-Out/Discharge Documenting (check all that apply): Patient Departure - Discharge Patient Received Moderate/Deep Sedation with Procedure: No - Discharge Plan Condition: Stable Disposition: HOME Patient Education Materials: Recurrent Seizures in Adults (ED) Forms: *Work Release Referrals: Osvaldo Sheffield MD [Primary Care Provider] - Pepe Real MD [Medical Doctor] - As Soon As Possible Additional Instructions: Follow up with Dr. Real as soon as possible. Call his office for lab results. Do not return to work until you are cleared by neurology. Come back to the Emergency Department if you have another seizure. Return to the Emergency Department for new or worsening symptoms. - Billing Disposition and Condition Condition: STABLE Disposition: Home - Attestation Statements Document Initiated by Aryibe: Yes Documenting Scribe: Orin Caba Provider For Whom Walter is Documenting (Include Credential): Ollie Cali MD Scribe Attestation: I, Orin Caba, scribed for Ollie Cali MD on 02/24/19 at 1836. Scribe Documentation Reviewed: Yes Provider Attestation: The documentation as recorded by the Orin guardado accurately reflects the service I personally performed and the decisions made by me, Ollie Cali MD Status of Scribe Document: Viewed
[2019-02-24 14:27] LABS: Urine Appearance Cloudy; Urine Bacteria Absent (Absent); Urine Bilirubin Negative (Negative); Urine Blood 3+ (Negative); Urine Color Yellow; Urine Glucose Negative (Negative); Urine Ketones Negative (Negative); Urine Nitrite Negative (Negative); Urine Protein Negative (Negative); Urine Red Blood Cell 3+(>10/hpf) (Absent); Urine Specific Gravity 1.008 (1.010-1.030); Urine Squamous Epithelial Cell Present (Absent); Urine Urobilinogen Negative (Negative); Urine White Blood Cell Absent (Absent)
[2019-02-24 14:45] LABS: ABS Basophils 0.1 10^3/ul (0-0.2); ABS Eosinophils 0.1 10^3/ul (0-0.6); ABS Lymphocytes 1.5 10^3/ul (1.0-4.8); ABS Monocytes 0.6 10^3/ul (0-0.8); ABS Neutrophils 10.4 10^3/ul (1.5-7.7); Eosinophil % 0.4 %; Hematocrit 37 % (35-47); Hemoglobin 12.2 g/dL (12.0-16.0); Lymphocyte % 11.8 %; Mean Corpuscular HGB Conc 33 g/dL (31-36); Mean Corpuscular Hemoglobin 24 pg (27-31); Mean Corpuscular Volume 73 fL (80-97); Mean Platelet Volume 7.8 fL (7.4-10.4); Platelet Count 336 10^3/uL (150-450); Red Blood Count 5.04 10^6 /uL (3.70-4.87); Red Cell Distribution Width 16 % (10-15); White Blood Count 12.7 10^3/uL (3.5-10.8)
[2019-02-24 14:46] LABS: INR 1.09 (0.82-1.09)
[2019-02-24 15:13] LABS: Albumin 4.4 g/dL (3.2-5.2); Albumin/Globulin Ratio 1.3 (1-3); BUN/Creatinine Ratio 16.1 (8-20); Calcium 9.7 mg/dL (8.6-10.3); EGFR African American 165.4 (>60); EGFR Non-African American 136.7 (>60); Globulin 3.3 g/dL (2-4); Magnesium 2.2 mg/dL (1.9-2.7); Total Bilirubin 0.3 mg/dL (0.2-1.0); Total Protein 7.7 g/dL (6.4-8.9)
[2019-02-24 15:15] LABS: TSH (Thyroid Stimulating Horm) 1.39 mcIU/mL (0.34-5.60)
[2019-02-24 16:26] VITALS: BP 130/88
[2019-02-25 15:20] LABS: Lamotrigine 2.8 mcg/mL (2.5 - 15.0)
--- NOTE | 2019-02-26 17:20 | PN ---
Progress Note - Progress Note Date of Service: 02/25/19 Note: Pt. seen for break through seizure. Ethosuximide level obtained and noted to be mildly elevated above therapeutic range. Per ER note pt. was to f.u with her neurologist for lab results and re-evaluation. No change in treatment needed at this time.
== END 2019-02-24 16:24 | disposition home or self-care (01) ==
LOC: ED 12:01
DX: R56.9 Unspecified convulsions (principal); I10 Essential (primary) hypertension; F41.9 Anxiety disorder, unspecified; Z88.1 Allergy status to other antibiotic agents; Z88.2 Allergy status to sulfonamides; Z79.899 Other long term (current) drug therapy
CPT/HCPCS: 36415; 80053; 80168; 80175; 81003; 81015; 83605; 83735; 84443; 85025; 85610; 93005; 99283

== ENCOUNTER 2019-10-13 12:31 | Emergency (ER) | payer OTHER ==
--- NOTE | 2019-10-13 13:13 | ED ---
Seizure - HPI Summary HPI Summary: Patient is a 23-year-old female who presents emergency department for evaluation after seizure that occurred around 1:00 today. States seizure took place in a recliner and was witnessed by family. No injuries sustained. Patient has a history of seizures and follows with Dr. Real. Patient currently on Lamictal and Zarotin. Patient states she is compliant with her seizure medications. Patient denies recent illness, fever, cough, shortness of breath, abdominal pain, urinary symptoms. No other past medical history. Patient notes she has an appointment with her neurologist tomorrow. Symptoms are moderate in severity. No current modifying factors. - History Of Current Complaint Chief Complaint: EDSeizure Time Seen by Provider: 10/13/19 12:54 Hx Obtained From: Patient - Allergies/Home Medications Allergies/Adverse Reactions: Allergies Allergy/AdvReac Type Severity Reaction Status Date / Time sulfamethoxazole Allergy See Comment Verified 10/13/19 13:05 [From Bactrim] trimethoprim [From Bactrim] Allergy See Comment Verified 10/13/19 13:05 Home Medications: Home Medications Ethosuximide [Zarontin] 1,000 mg PO QAM 09/10/15 [History Confirmed 10/13/19] Ethosuximide CAP* [Zarontin CAP*] 1,250 mg PO BEDTIME 07/17/18 [History Confirmed 10/13/19] Valsartan TAB* [Diovan TAB*] 160 mg PO DAILY 02/24/19 [History Confirmed ] lamoTRIgine TAB(*) [LaMICtal TAB(*)] 200 mg PO BID 02/24/19 [History Confirmed 10/13/19] lamoTRIgine [Lamictal] 25 mg PO QAM #7 tablet 10/13/19 [Rx] PMH/Surg Hx/FS Hx/Imm Hx Previously Healthy: Yes Endocrine/Hematology History: Denies: Hx Anticoagulant Therapy, Hx Diabetes, Hx Thyroid Disease Cardiovascular History: Reports: Hx Hypertension Denies: Hx Congestive Heart Failure, Hx Deep Vein Thrombosis, Hx Myocardial Infarction, Hx Pacemaker/ICD Respiratory History: Denies: Hx Asthma, Hx Chronic Obstructive Pulmonary Disease (COPD), Hx Lung Cancer, Hx Pneumonia, Hx Pulmonary Embolism GI History: Denies: Hx Gall Bladder Disease, Hx Gastrointestinal Bleed, Hx Ulcer, Hx Urosepsis History: Denies: Hx Dialysis, Hx Kidney Stones, Hx Renal Disease Sensory History: Denies: Hx Contacts or Glasses, Hx Eye Prosthesis, Hx Hearing Aid Opthamlomology History: Denies: Hx Contacts or Glasses, Hx Eye Prosthesis Neurological History: Reports: Hx Seizures Denies: Hx Dementia, Hx Migraine, Hx Transient Ischemic Attacks (TIA) Psychiatric History: Reports: Hx Anxiety Denies: Hx Depression, Hx Schizophrenia, Hx Bipolar Disorder - Surgical History Surgery Procedure, Year, and Place: appendectomy Infectious Disease History: No Infectious Disease History: Denies: Traveled Outside the [place] in Last 30 Days - Family History Known Family History: Positive: Hypertension - mother, Diabetes - mother, Other - FMHx of mother with ovarian cysts, Non-Contributory Family History: mother has asthma, COPD - Social History Occupation: Unemployed Lives: With Family Alcohol Use: Rare Hx Substance Use: No Substance Use Type: Reports: None Hx Tobacco Use: No Smoking Status (MU): Never Smoked Tobacco Review of Systems Constitutional: Negative Negative: Fever Eyes: Negative ENT: Negative Cardiovascular: Negative Respiratory: Negative Gastrointestinal: Negative Genitourinary: Negative Negative: dysuria Musculoskeletal: Negative Skin: Negative Neurological/Mental Status: Other - seizure All Other Systems Reviewed And Are Negative: Yes Physical Exam Triage Information Reviewed: Yes Vital Signs On Initial Exam: Initial Vitals Temp Pulse Resp BP Pulse Ox 98.0 F 103 18 160/90 98 10/13/19 12:35 10/13/19 12:35 10/13/19 12:35 10/13/19 12:35 10/13/19 12:35 Vital Signs Reviewed: Yes Appearance: Positive: Well-Appearing - Pt. sitting up in bed in NAD. Awake, alert and oriented x 3. Skin: Positive: Warm, Dry Head/Face: Positive: Normal Head/Face Inspection Eyes: Positive: Normal, EOMI, THAD ENT: Positive: Other - small bite wound to tongue. Neck: Positive: Supple Respiratory/Lung Sounds: Positive: Clear to Auscultation, Breath Sounds Present Cardiovascular: Positive: Normal, RRR Musculoskeletal: Positive: Normal, Strength/ROM Intact Neurological: Positive: Normal, Alert, Oriented to Person Place, Time, CN Intact II-III Psychiatric: Positive: Affect/Mood Appropriate Procedures - Sedation Patient Received Moderate/Deep Sedation with Procedure: No Diagnostics - Vital Signs Vital Signs Temp Pulse Resp BP Pulse Ox 10/13/19 13:00 99 25 97 10/13/19 12:42 99 28 146/89 98 10/13/19 12:38 22 10/13/19 12:35 98.0 F 103 18 160/90 98 - Laboratory Result Diagrams: 10/13/19 13:16 10/13/19 13:16 Lab Statement: Any lab studies that have been ordered have been reviewed, and results considered in the medical decision making process. Course/Dx - Course Course Of Treatment: Patient evaluation after a seizure. She is back to baseline. Afebrile with stable vital signs. O2 sat is unremarkable. Case discussed with patient's neurologist, Dr. Real. He would like patient's morning dose increased by 25 g and he will follow up with her tomorrow as scheduled. Patient requesting discharge. We'll return to the ER if symptoms change or worsen. - Diagnoses Differential Diagnosis/HQI/PQRI: Positive: Metabolic Disorder, Known Seizure Disorder Provider Diagnoses: Seizure disorder Discharge ED - Sign-Out/Discharge Documenting (check all that apply): Patient Departure - Discharge Plan Condition: Improved Disposition: HOME Prescriptions: lamoTRIgine [Lamictal] 25 mg PO QAM #7 tablet Patient Education Materials: Recurrent Seizures in Adults (ED) Referrals: Osvaldo Sheffield MD [Primary Care Provider] - Additional Instructions: Follow up with Dr. Real tomorrow as scheduled Dr. Real would like you to increase morning dose of lamictal by 25mg Return to ER if symptoms change or worsen - Billing Disposition and Condition Condition: IMPROVED Disposition: Home
[2019-10-13 13:30] LABS: ABS Basophils 0.1 10^3/ul (0-0.2); ABS Lymphocytes 0.7 10^3/ul (1.0-4.8); ABS Monocytes 0.5 10^3/ul (0-0.8); ABS Neutrophils 8.5 10^3/ul (1.5-7.7); Eosinophil % 0.5 %; Hematocrit 37 % (35-47); Hemoglobin 12.1 g/dL (12.0-16.0); Lymphocyte % 7.6 %; Mean Corpuscular HGB Conc 33 g/dL (31-36); Mean Corpuscular Hemoglobin 24 pg (27-31); Mean Corpuscular Volume 74 fL (80-97); Mean Platelet Volume 7.7 fL (7.4-10.4); Platelet Count 342 10^3/uL (150-450); Red Blood Count 4.96 10^6 /uL (3.70-4.87); Red Cell Distribution Width 15 % (10-15); White Blood Count 9.8 10^3/uL (3.5-10.8)
[2019-10-13 13:51] LABS: ALT 13 U/L (7-52); AST 11 U/L (13-39); Albumin/Globulin Ratio 1.2 (1-3); Alkaline Phosphatase 108 U/L (34-104); Anion Gap 7 mmol/L (2-11); BUN/Creatinine Ratio 14.1 (8-20); Blood Urea Nitrogen 9 mg/dL (6-24); CO2 Carbon Dioxide 28 mmol/L (22-32); Calcium 9.6 mg/dL (8.6-10.3); Chloride 102 mmol/L (101-111); EGFR African American 141.7 (>60); EGFR Non-African American 117.1 (>60); Globulin 3.4 g/dL (2-4); Glucose 140 mg/dL (70-100); Potassium 3.8 mmol/L (3.5-5.0); Sodium 137 mmol/L (135-145); Total Protein 7.4 g/dL (6.4-8.9)
[2019-10-13 13:57] LABS: HCG Pregnancy < 0.60 mIU/mL
[2019-10-13 15:44] VITALS: BP 143/86
[2019-10-14 16:12] LABS: Lamotrigine 3.3 mcg/mL (2.5 - 15.0)
== END 2019-10-13 15:43 | disposition home or self-care (01) ==
LOC: ED 12:31
DX: G40.909 Epilepsy, unspecified, not intractable, without status epilepticus (principal); I10 Essential (primary) hypertension; F41.9 Anxiety disorder, unspecified; Z88.2 Allergy status to sulfonamides; Z79.899 Other long term (current) drug therapy; Z88.0 Allergy status to penicillin
CPT/HCPCS: 36415; 80053; 80168; 80175; 84702; 85025; 99283